=== PATIENT | female | born 1970 | race Caucasian/White ===

== ENCOUNTER 2023-11-23 22:46 | Emergency (ER) | payer OTHER ==
[2023-11-23 23:09] VITALS: BP 141/86; PULSE 105; RESP 16; TEMP 97.5; BMI 29.4
[2023-11-23] MEDS ORDERED: METOCLOPRAMIDE HCL INJECTION 10 MG/2 ML VIAL IVPUSH ONE (23:33)
[2023-11-23] MEDS ORDERED: LACTATED RINGERS SOLUTION 1000 ML INFUS.BAG IV ONE (23:33)
[2023-11-23] MEDS ORDERED: FAMOTIDINE 20 MG/50 ML IVPB 20 MG/50 ML MG IVPB ONE (23:33)
[2023-11-23] MEDS ORDERED: ACETAMINOPHEN 1000 MG/100 ML BAG IVPB ONE (23:33)
[2023-11-24 00:11] LABS: BASO % 0.4 % (0-2.0); HEMATOCRIT 44.6 % (32.4-45.2); LYMPH % 14.7 % (8-40); MCH 25.4 pg (25.7-33.7); MCHC 31.3 g/dl (32.0-36.0); MEAN CELL VOLUME 81.2 fl (80-96); MEAN PLT VOLUME 8.8 fl (7.5-11.1); MONO % 4.2 % (3.8-10.2); NEUT % 80.7 % (42.8-82.8); PLATELET COUNT 306 10^3/uL (134-434); WHITE BLOOD COUNT 12.3 K/mm3 (4.0-10.0)
[2023-11-24] MEDS ORDERED: FAMOTIDINE 20 MG/50 ML IVPB 20 MG/50 ML MG IVPB ONE (00:25)
[2023-11-24] MEDS ORDERED: METOCLOPRAMIDE HCL INJECTION 10 MG/2 ML VIAL ONE (00:25)
[2023-11-24] MEDS ORDERED: ACETAMINOPHEN INJECTION 100 ML IVPB ONE (00:25)
[2023-11-24 00:35] LABS: POTASSIUM 3.9 mmol/L (3.5-5.1)
[2023-11-24 00:37] LABS: ALBUMIN 4.4 g/dl (3.4-5.0); BLOOD UREA NITROGEN 13.2 mg/dL (7-18); CALCIUM 10.3 mg/dL (8.5-10.1)
[2023-11-24 00:38] LABS: MAGNESIUM 2.2 mg/dL (1.8-2.4)
[2023-11-24 00:40] LABS: CREATININE 0.9 mg/dL (0.55-1.3)
[2023-11-24 00:42] LABS: BILIRUBIN,TOTAL 0.8 mg/dL (0.2-1); TOT PROT 8.9 g/dl (6.4-8.2)
== END 2023-11-24 01:59 | disposition home or self-care (01) ==
LOC: JER 22:46
PROC: 3E033GC Introduction of Other Therapeutic Substance into Peripheral Vein, Percutaneous Approach (ICD-10-PCS; principal; 2023-11-23)
PROC: 3E033GC Introduction of Other Therapeutic Substance into Peripheral Vein, Percutaneous Approach (ICD-10-PCS; 2023-11-23)
PROC: 3E033NZ Introduction of Analgesics, Hypnotics, Sedatives into Peripheral Vein, Percutaneous Approach (ICD-10-PCS; 2023-11-23)
DX: R11.2 Nausea with vomiting, unspecified (principal); R51.9 Headache, unspecified; R53.1 Weakness; R68.83 Chills (without fever); T88.7XXA Unspecified adverse effect of drug or medicament, initial encounter; Z20.822 Contact with and (suspected) exposure to COVID-19
CPT/HCPCS: 0241U-QW; 36415; 80053; 83735; 84484; 85025; 93005; 93010; 99284-25